=== PATIENT | female | born 1990 | race Two or more races ===

== ENCOUNTER 2017-09-06 13:16 | Outpatient (CLI) | payer OTHER ==
[2017-09-06 13:57] LABS: AMNISURE (ROM) NEGATIVE (NEGATIVE)
--- NOTE | 2017-09-06 14:31 | Non Stress Test Report ---
Non Stress Test Datetime Report Generated by CPN: 09/06/2017 14:30 DEMOGRAPHIC EGA NST: 33.4 INDICATION Indication for Study: Ordered by Provider MONITORING Monitor Explained: Monitor Explained; Test Explained; Patient Verbalized Understanding Time on Monitor: 09/06/2017 13:36 Time off Monitor: 09/06/2017 14:17 NST Duration: 41 NST INTERVENTIONS NST Interventions: PO Hydration; Reposition Patient Physician Notified NST: Murray, CNM BABY A: [id number] BABY A Movement : Present Contraction Frequency : 0 FHR Baseline : 135 Accelerations : 15X15 Decelerations : None Variability : Moderate 6-25bpm NST Review: Meets Criteria for Reactive NST NST Review and Verified By : AB MITCHELL Results: Reactive NST REPORT Report Trigger: Send Report
== END 2017-09-06 14:34 | disposition home or self-care (01) ==
LOC: LC 13:16
PROVIDERS: ATTEND Obstetrics & Gynecology
PROC: 4A1HXCZ Monitoring of Products of Conception, Cardiac Rate, External Approach (ICD-10-PCS; principal; 2017-09-06)
DX: O47.03 False labor before 37 completed weeks of gestation, third trimester (principal); Z3A.33 33 weeks gestation of pregnancy
CPT/HCPCS: 59025; 84112

== ENCOUNTER 2017-09-13 13:54 | Outpatient (CLI) | payer OTHER ==
[2017-09-13 14:43] LABS: APPEARANCE,URINE SLIGHTLY-CLOUDY; BILIRUBIN,URINE NEGATIVE (NEGATIVE); GLUCOSE, URINE NEGATIVE (NEGATIVE); KETONES,URINE NEGATIVE (NEGATIVE); LEUKOCYTE ESTERASE,URINE NEGATIVE (NEGATIVE); NITRITE,URINE NEGATIVE (NEGATIVE); PROTEIN,URINE NEGATIVE (NEGATIVE); URINE SPECIFIC GRAVITY 1.013; UROBILINOGEN,URINE NEGATIVE mg/dL (<2.0)
[2017-09-13 15:04] LABS: AMNISURE (ROM) NEGATIVE (NEGATIVE)
[2017-09-13 15:20] LABS: URINE BARBITURATES SCREEN NEGATIVE; URINE METHADONE SCREEN NEGATIVE; URINE OPIATES LOW NEGATIVE; URINE PHENCYCLIDINE SCREEN NEGATIVE
== END 2017-09-13 15:37 | disposition home or self-care (01) ==
LOC: LC 13:54
PROVIDERS: ATTEND Student in an Organized Health Care Education/Training Program
PROC: 4A1HXCZ Monitoring of Products of Conception, Cardiac Rate, External Approach (ICD-10-PCS; principal; 2017-09-13)
DX: O47.03 False labor before 37 completed weeks of gestation, third trimester (principal); Z3A.34 34 weeks gestation of pregnancy
CPT/HCPCS: 59025; 80307; 81005; 84112

== ENCOUNTER 2017-09-21 18:46 | Outpatient (CLI) | payer OTHER ==
[2017-09-21 19:39] LABS: APPEARANCE,URINE CLEAR; BILIRUBIN,URINE NEGATIVE (NEGATIVE); GLUCOSE, URINE NEGATIVE (NEGATIVE); KETONES,URINE NEGATIVE (NEGATIVE); LEUKOCYTE ESTERASE,URINE NEGATIVE (NEGATIVE); NITRITE,URINE NEGATIVE (NEGATIVE); PROTEIN,URINE NEGATIVE (NEGATIVE); URINE SPECIFIC GRAVITY 1.015
[2017-09-21 19:55] LABS: URINE BARBITURATES SCREEN NEGATIVE; URINE METHADONE SCREEN NEGATIVE; URINE OPIATES LOW NEGATIVE; URINE PHENCYCLIDINE SCREEN NEGATIVE
[2017-09-21 20:27] LABS: ABSOLUTE EOSINOPHILS # (AUTO) 0.2 10^3/uL (0.0-0.6); ABSOLUTE LYMPHOCYTES (AUTO) 1.3 10^3/uL (0.5-4.7); ABSOLUTE MONOCYTES (AUTO) 0.6 10^3/uL (0.1-1.4); ABSOLUTE NEUT (AUTO) 7.8 10^3/uL (1.7-8.2); BASOPHILS % (AUTO) 0.5 % (0-2); EOSINOPHILS % (AUTO) 1.7 % (0-6); HEMATOCRIT 30.8 % (36.0-47.0); HEMOGLOBIN 9.9 g/dL (12.0-15.5); HGB HCT DIFFERENCE -1.1; LYMPHOCYTES % (AUTO) 12.7 % (13-45); MEAN CORPUSCULAR HEMOGLOBIN 20.1 pg (27.0-33.4); MEAN CORPUSCULAR HGB CONC 32.2 g/dL (32.0-36.0); MONOCYTES % (AUTO) 6.4 % (3-13); RED BLOOD COUNT 4.91 10^6/uL (3.72-5.28); RED CELL DISTRIBUTION WIDTH 17.3 % (11.5-14.0); SEGMENTED NEUTROPHILS % (AUTO) 78.7 % (42-78); WHITE BLOOD COUNT 9.9 10^3/uL (4.0-10.5)
[2017-09-21] MEDS ORDERED: MAG HYDROX/AL HYDROX/SIMETH SUSP 30 ML UDCUP ONE (20:27)
[2017-09-21 20:38] LABS: MEAN CORPUSCULAR VOLUME 63 fl (80-97)
[2017-09-21 20:45] LABS: ALANINE AMINOTRANSFERASE 27 U/L (9-52); ALBUMIN 2.9 g/dL (3.5-5.0); ALKALINE PHOSPHATASE 110 U/L (38-126); AMYLASE 78 U/L (30-110); ANION GAP 9 (5-19); ASPARTATE AMINO TRANSFERASE 18 U/L (14-36); BILIRUBIN,DIRECT 0.1 mg/dL (0.0-0.4); BILIRUBIN,TOTAL 0.2 mg/dL (0.2-1.3); BLOOD UREA NITROGEN 6 mg/dL (7-20); CALCIUM 9.2 mg/dL (8.4-10.2); CARBON DIOXIDE 22 mmol/L (22-30); CHLORIDE 106 mmol/L (98-107); CREATININE RESULT 0.51 mg/dL (0.52-1.25); GLUCOSE 85 mg/dL (75-110); LIPASE 51.1 U/L (23-300); POTASSIUM 4.4 mmol/L (3.6-5.0); SODIUM 137.3 mmol/L (137-145); TOTAL PROTEIN 6.1 g/dL (6.3-8.2)
[2017-09-21 20:46] LABS: ANISOCYTOSIS 1+; MICROCYTOSIS 3+; POIKILOCYTOSIS SLIGHT
[2017-09-21 20:47] LABS: OVALOCYTES SLIGHT; TEAR DROP CELLS SLIGHT
[2017-09-21 20:48] LABS: POLYCHROMASIA SLIGHT
[2017-09-21] MEDS ORDERED: LIDOCAINE 2% VISCOUS SOLN 20 ML UDCUP PO ONE (21:00)
[2017-09-21] MEDS ORDERED: MAG HYDROX/AL HYDROX/SIMETH SUSP 30 ML UDCUP PO ONE (21:00)
[2017-09-21] MEDS ORDERED: METOCLOPRAMIDE HCL ORAL SOLN 10 MG/10 ML UDCUP PO ONE (21:00)
[2017-09-21] MEDS ORDERED: CITRIC ACID/SODIUM CITRATE ORAL SOLN 15 ML UDCUP PO ONE (21:25)
[2017-09-21] MEDS ORDERED: CITRIC ACID/SODIUM CITRATE ORAL SOLN 15 ML UDCUP ONE (21:33)
--- NOTE | 2017-09-22 00:24 | RADIOLOGY REPORT (SQ) ---
EXAM DESCRIPTION: U/S ABDOMEN LIMITED W/O DOP CLINICAL HISTORY: 26 years, Female, RUQ and epigastric pain,nausea,emesis COMPARISON: None. FINDINGS: Gallbladder sludge. Negative sonographic Bragg's test. 0.3 cm gallbladder wall thickness. 0.4 cm common duct diameter. No intra or extrahepatic ductal dilation. 20 cm hepatomegaly, partially obscured aorta, obscured pancreas, 12.3 cm right kidney, gravid uterus. No significant ascites. 5.4 x 4.5 x 2.0 cm mostly ventral, supraumbilical midline hernia appears mostly reducible with and without Valsalva maneuvers; if there is a bowel component, it appears mostly reducible. IMPRESSION: 1. No acute findings. Gallbladder sludge. Hepatomegaly. 2. Likely 5.4 cm ventral hernia, may contain some bowel and appears mostly reducible. No evidence of acute complication. 3. Gravid uterus. 2011 [employer]- All Rights Reserved
--- NOTE | 2017-09-22 01:04 | Non Stress Test Report ---
Non Stress Test Datetime Report Generated by CPN: 09/22/2017 01:04 DEMOGRAPHIC EGA NST: 35.5 EGA NST: 34.4 INDICATION Indication for Study: Other Indication for Study: Other Indication for Study (NST) Other: labor check Indication for Study (NST) Other: LABOR CHECK MONITORING Monitor Explained: Monitor Explained; Test Explained; Patient Verbalized Understanding Monitor Explained: Monitor Explained; Test Explained; Patient Verbalized Understanding Time on Monitor: 09/21/2017 19:13 Time on Monitor: 09/13/2017 14:15 Time off Monitor: 09/21/2017 21:35 NST Duration: 142 NST INTERVENTIONS NST Interventions: PO Hydration NST Interventions: PO Hydration; Reposition Patient Physician Notified NST: Park BABY A: [id number] BABY A Movement : Present Movement : Present Contraction Frequency : no contractions FHR Baseline : 140 FHR Baseline : 135 Accelerations : 15X15 Accelerations : 15X15 Decelerations : None Decelerations : None Variability : Moderate 6-25bpm Variability : Moderate 6-25bpm NST Review: Meets Criteria for Reactive NST NST Review: Meets Criteria for Reactive NST NST Review and Verified By : Gregorio Brown RN NST Review and Verified By : Dasia Delgado RNC NST Results: Reactive NST Results: Reactive NST REPORT Report Trigger: Send Report
[2017-09-22 12:59] LABS: PATH REVIEW PATHOLOGIST REVIEWED
== END 2017-09-22 00:53 | disposition home or self-care (01) ==
LOC: LC 18:46
PROVIDERS: ATTEND Student in an Organized Health Care Education/Training Program
PROC: 4A1HXCZ Monitoring of Products of Conception, Cardiac Rate, External Approach (ICD-10-PCS; principal; 2017-09-21)
DX: O47.03 False labor before 37 completed weeks of gestation, third trimester (principal); R10.11 Right upper quadrant pain; R11.2 Nausea with vomiting, unspecified; Z3A.35 35 weeks gestation of pregnancy
CPT/HCPCS: 59025; 36415; 82150; 83690; 85025; 80053; 81001; 80307; 76705; J3490 ×2

== ENCOUNTER 2017-10-20 20:04 | Outpatient (CLI) | payer OTHER ==
[2017-10-20 20:48] LABS: APPEARANCE,URINE CLOUDY; BILIRUBIN,URINE NEGATIVE (NEGATIVE); GLUCOSE, URINE 50 mg/dL (NEGATIVE); KETONES,URINE NEGATIVE (NEGATIVE); LEUKOCYTE ESTERASE,URINE TRACE (NEGATIVE); NITRITE,URINE NEGATIVE (NEGATIVE); PROTEIN,URINE 100 mg/dL (NEGATIVE); URINE SPECIFIC GRAVITY 1.034; UROBILINOGEN,URINE NEGATIVE mg/dL (<2.0)
[2017-10-20 20:51] LABS: COLOR,URINE YELLOW
[2017-10-20 20:55] LABS: AMNISURE (ROM) NEGATIVE (NEGATIVE)
[2017-10-20 21:05] LABS: URINE AMPHETAMINES SCREEN NEGATIVE; URINE BARBITURATES SCREEN NEGATIVE; URINE BENZODIAZEPINES SCREEN NEGATIVE; URINE COCAINE SCREEN NEGATIVE; URINE MARIJUANA (THC) SCREEN NEGATIVE; URINE METHADONE SCREEN NEGATIVE; URINE PHENCYCLIDINE SCREEN NEGATIVE
[2017-10-20] MEDS ORDERED: DEXTROSE 5%-LACTATED RINGERS 1,000 ML IV PRN (21:25)
[2017-10-20] MEDS ORDERED: RINGERS SOLUTION,LACTATED 1,000 ML IV PRN (21:27)
[2017-10-20 22:07] LABS: ALANINE AMINOTRANSFERASE 24 U/L (9-52); ALBUMIN 3.2 g/dL (3.5-5.0); ALKALINE PHOSPHATASE 121 U/L (38-126); ANION GAP 8 (5-19); ASPARTATE AMINO TRANSFERASE 16 U/L (14-36); BILIRUBIN,DIRECT 0.1 mg/dL (0.0-0.4); BILIRUBIN,TOTAL 0.1 mg/dL (0.2-1.3); BLOOD UREA NITROGEN 10 mg/dL (7-20); CALCIUM 9.1 mg/dL (8.4-10.2); CARBON DIOXIDE 23 mmol/L (22-30); CHLORIDE 108 mmol/L (98-107); GLUCOSE 100 mg/dL (75-110); LDH 384 U/L (313-618); SODIUM 138.5 mmol/L (137-145); TOTAL PROTEIN 6.2 g/dL (6.3-8.2); URIC ACID 5.3 mg/dL (2.5-6.2)
[2017-10-20 22:09] LABS: ABSOLUTE BASOPHILS # (AUTO) 0.1 10^3/uL (0.0-0.2); ABSOLUTE EOSINOPHILS # (AUTO) 0.1 10^3/uL (0.0-0.6); ABSOLUTE LYMPHOCYTES (AUTO) 2.7 10^3/uL (0.5-4.7); ABSOLUTE MONOCYTES (AUTO) 0.8 10^3/uL (0.1-1.4); ABSOLUTE NEUT (AUTO) 11.2 10^3/uL (1.7-8.2); BASOPHILS % (AUTO) 0.8 % (0-2); HEMATOCRIT 31.9 % (36.0-47.0); LYMPHOCYTES % (AUTO) 18.3 % (13-45); MEAN CORPUSCULAR HEMOGLOBIN 19.3 pg (27.0-33.4); MEAN CORPUSCULAR HGB CONC 31.3 g/dL (32.0-36.0); MONOCYTES % (AUTO) 5.4 % (3-13); PLATELET COUNT 388 10^3/uL (150-450); RED BLOOD COUNT 5.18 10^6/uL (3.72-5.28); SEGMENTED NEUTROPHILS % (AUTO) 74.5 % (42-78); TOTAL CELLS COUNTED % (AUTO) 100 %
[2017-10-20 22:13] LABS: UR PRO/CREAT RATIO RESULT 0.1 mg/mg (0.0-0.2); URINE CREATININE 309.8 mg/dL (16-327); URINE PROTEIN 33.8 mg/dL (<12)
[2017-10-20 22:31] LABS: ANISOCYTOSIS 2+; BURR CELLS SLIGHT; OVALOCYTES SLIGHT; POIKILOCYTOSIS SLIGHT; POLYCHROMASIA 1+; TEAR DROP CELLS SLIGHT
[2017-10-20 22:32] LABS: MEAN CORPUSCULAR VOLUME 62 fl (80-97); PLATELET COMMENT ADEQUATE
[2017-10-21] MEDS ORDERED: ACETAMINOPHEN 325 MG TABLET PO ONE (01:00)
[2017-10-21] MEDS ORDERED: ACETAMINOPHEN 325 MG TABLET ONE (01:21)
--- NOTE | 2017-10-21 01:22 | RADIOLOGY REPORT (SQ) ---
EXAM DESCRIPTION: U/S PROFILE W/O STRESS CLINICAL HISTORY: 26 years, Female, decreased FM, unable to keep on monitor COMPARISON: None. TECHNIQUE: Targeted obstetrical sonogram for limited, requested parameters. LIMITATIONS: None. FINDINGS: Biophysical profile: breathing movement: Zero posturing tone: Two movement: Two Qualitative amniotic fluid volume: Two; single vertical fluid pocket demonstrated measuring 3.9 cm. Total score: Six of eight heart rate: 124 bpm Presentation: Vertex IMPRESSION: Targeted obstetrical sonogram for requested parameters. 2011 [employer]- All Rights Reserved
--- NOTE | 2017-10-21 01:53 | Non Stress Test Report ---
Non Stress Test Datetime Report Generated by CPN: 10/21/2017 01:53 DEMOGRAPHIC Test Number: 4 INDICATION Indication for Study: Decreased Movement; Ordered by Provider VITAL SIGNS Pulse - NST: 78 RESP - NST: 20 NBPSYS NST: 131 NBPDIA NST: 80 URINE RESULTS Urine Protein, NST: Positive Urine Ketones - NST: Negative Urine Glucose - NST: Positive Urine Blood - NST: Negative MONITORING Monitor Explained: Monitor Explained; Test Explained; Patient Verbalized Understanding NST INTERVENTIONS NST Interventions: PO Hydration; IV Fluids; Reposition Patient; For Biophysical Profile Physician Notified NST: Dr. Nick BABY A: [id number] BABY A Movement : Present; Decreased Contraction Frequency : rare Accelerations : 15X15 Decelerations : None NST Review: Meets Criteria for Reactive NST NST Review and Verified By : Rhett Madera RN NST Results: Reactive NST COMMENTS NST Comments: bpp 6/8 for breathing. unable to continuously monitor tracing due to maternal habitus. NST REPORT Report Trigger: Send Report
[2017-10-23 16:25] LABS: PATH REVIEW PATHOLOGIST REVIEWED
== END 2017-10-21 01:40 | disposition home or self-care (01) ==
LOC: LC 20:04
PROVIDERS: ATTEND Student in an Organized Health Care Education/Training Program
PROC: 4A1HXCZ Monitoring of Products of Conception, Cardiac Rate, External Approach (ICD-10-PCS; principal; 2017-10-20)
DX: O36.8130 Decreased fetal movements, third trimester, not applicable or unspecified (principal); O47.1 False labor at or after 37 completed weeks of gestation; Z3A.39 39 weeks gestation of pregnancy
CPT/HCPCS: 36415; 59025; 76819; 80053; 80307; 81005; 82570; 83615; 84112; 84156; 84550; 85025

== ENCOUNTER 2017-10-22 13:38 | Inpatient (IN) | payer OTHER ==
[2017-10-22 14:15] LABS: APPEARANCE,URINE SLIGHTLY-CLOUDY; BILIRUBIN,URINE NEGATIVE (NEGATIVE); COLOR,URINE YELLOW; GLUCOSE, URINE NEGATIVE (NEGATIVE); KETONES,URINE NEGATIVE (NEGATIVE); LEUKOCYTE ESTERASE,URINE SMALL (NEGATIVE); NITRITE,URINE NEGATIVE (NEGATIVE); PROTEIN,URINE NEGATIVE (NEGATIVE); UROBILINOGEN,URINE NEGATIVE mg/dL (<2.0)
[2017-10-22 14:34] LABS: UR PRO/CREAT RATIO RESULT 0.3 mg/mg (0.0-0.2); URINE CREATININE 82.8 mg/dL (16-327); URINE PROTEIN 24.3 mg/dL (<12)
[2017-10-22 14:43] LABS: URINE AMPHETAMINES SCREEN NEGATIVE; URINE BARBITURATES SCREEN NEGATIVE; URINE BENZODIAZEPINES SCREEN NEGATIVE; URINE COCAINE SCREEN NEGATIVE; URINE MARIJUANA (THC) SCREEN NEGATIVE; URINE METHADONE SCREEN NEGATIVE; URINE PHENCYCLIDINE SCREEN NEGATIVE
[2017-10-22 15:03] LABS: ABSOLUTE BASOPHILS # (AUTO) 0.1 10^3/uL (0.0-0.2); ABSOLUTE EOSINOPHILS # (AUTO) 0.2 10^3/uL (0.0-0.6); ABSOLUTE MONOCYTES (AUTO) 0.7 10^3/uL (0.1-1.4); ABSOLUTE NEUT (AUTO) 9.1 10^3/uL (1.7-8.2); EOSINOPHILS % (AUTO) 1.3 % (0-6); HEMATOCRIT 30.5 % (36.0-47.0); HEMOGLOBIN 9.5 g/dL (12.0-15.5); LYMPHOCYTES % (AUTO) 16.4 % (13-45); MEAN CORPUSCULAR HEMOGLOBIN 19.2 pg (27.0-33.4); MEAN CORPUSCULAR HGB CONC 31.3 g/dL (32.0-36.0); MEAN CORPUSCULAR VOLUME 61 fl (80-97); PLATELET COUNT 349 10^3/uL (150-450); RED BLOOD COUNT 4.96 10^6/uL (3.72-5.28); RED CELL DISTRIBUTION WIDTH 18.1 % (11.5-14.0); SEGMENTED NEUTROPHILS % (AUTO) 75.3 % (42-78); TOTAL CELLS COUNTED % (AUTO) 100 %; WHITE BLOOD COUNT 12.1 10^3/uL (4.0-10.5)
[2017-10-22 15:18] LABS: ALANINE AMINOTRANSFERASE 24 U/L (9-52); ALBUMIN 2.8 g/dL (3.5-5.0); ALKALINE PHOSPHATASE 115 U/L (38-126); ANION GAP 5 (5-19); ASPARTATE AMINO TRANSFERASE 14 U/L (14-36); BILIRUBIN,DIRECT 0.1 mg/dL (0.0-0.4); BILIRUBIN,TOTAL 0.2 mg/dL (0.2-1.3); BLOOD UREA NITROGEN 7 mg/dL (7-20); CALCIUM 9.2 mg/dL (8.4-10.2); CARBON DIOXIDE 23 mmol/L (22-30); CHLORIDE 109 mmol/L (98-107); GLUCOSE 98 mg/dL (75-110); LDH 351 U/L (313-618); POTASSIUM 4.8 mmol/L (3.6-5.0); TOTAL PROTEIN 5.5 g/dL (6.3-8.2); URIC ACID 4.8 mg/dL (2.5-6.2)
[2017-10-22 15:21] LABS: OVALOCYTES SLIGHT; PLATELET COMMENT ADEQUATE; POIKILOCYTOSIS 1+; TEAR DROP CELLS SLIGHT
[2017-10-22] MEDS ORDERED: BUTALB/ACETAMINOPHEN/CAFFEINE 1 TAB EACH ONE (15:31)
[2017-10-22] MEDS ORDERED: RINGERS SOLUTION,LACTATED 1,000 ML IV PRN (16:39)
[2017-10-22] MEDS ORDERED: OXYTOCIN/NORMAL SALINE 20 UNIT/1,000 ML RTUINJ IV PRN (16:39)
[2017-10-22] MEDS ORDERED: RINGERS SOLUTION,LACTATED 300 ML IV ONE (17:00)
[2017-10-22] MEDS ORDERED: OXYTOCIN/NORMAL SALINE 20 UNIT/1,000 ML RTUINJ ONE ×2 (17:06→19:57)
[2017-10-22] MEDS ORDERED: MISOPROSTOL 0.2 MG TABLET ONE (19:57)
[2017-10-22] MEDS ORDERED: LIDOCAINE 1% INJ-PF (10 MG/ML) 30 ML SDV ONE (19:57)
--- NOTE | 2017-10-22 20:41 | L&D Progress Notes ---
PROGRESS NOTES Datetime Report Generated by CPN: 10/22/2017 20:41 PROGRESS NOTE Impression: Normal Progression of Labor Procedures: Sterile Vag Exam Plan: Induction; Cervical Ripening Informed Consent Obtained: Vaginal Delivery; Induction of Labor; Risks, Benefits and Alternatives Discussed Informed Consent Obtained: Vaginal Delivery; Induction of Labor; Risks, Benefits and Alternatives Discussed Vital Signs : Reviewed Comment: Pt has been on pitocin for approx 5 hours for cervical ripening/IOL. Cvx with change. Not in labor yet. Continue with pitocin to attempt to achieve labor. Pelvis adequate for continued SAVITA. Reassuring FWB VAGINAL EXAM Dilatation: 4 Dilatation: 2 Effacement: 25 Effacement: 25 Station: -2 Station: -2 Contractions: none MEMBRANES Membranes: Intact FETUS A FHR - Baseline: 130 Monitoring: External US Variability: Moderate 6-25bpm Accelerations: 15X15 Decelerations: None FHR Category: Category I Presentation: Vertex SIGNATURE SIGNATURE: [id number];[id number] SIGNATURE: [id number] SIGNATURE: [id number] SIGNATURE: [id number] Signature: with User ID: [email or web address]
--- NOTE | 2017-10-23 03:01 | L&D Progress Notes ---
PROGRESS NOTES Datetime Report Generated by CPN: 10/23/2017 03:01 PROGRESS NOTE Impression: Normal Progression of Labor Procedures: Artificial ROM; Sterile Vag Exam Plan: Continue Present Management; Induction Informed Consent Obtained: Vaginal Delivery; Induction of Labor; Risks, Benefits and Alternatives Discussed Vital Signs : Reviewed; Within Normal Limits Comment: Pt with increasing pain and pressure. Cvx /70/-2 with bulging bag. AROM with clear fluid. Pt declines epidural. Anticipate . VAGINAL EXAM Dilatation: 6 Effacement: 70 Station: -2 Contractions: q 2-3 MEMBRANES Membranes: Ruptured Amniotic Fluid Color: Clear FETUS A FHR - Baseline: 120 Monitoring: External US Variability: Moderate 6-25bpm Accelerations: 15X15 Decelerations: None FHR Category: Category I FETUS C SIGNATURE: [id number] Signature: with User ID: [email or web address]
[2017-10-23] MEDS ORDERED: OXYTOCIN 10 UNIT/ML VIAL ONE (04:01)
[2017-10-23] MEDS ORDERED: NA PHOS,M-B/NA PHOS,DI-BA (ADULT) 133 ML ENEMA PR PRN (04:02)
[2017-10-23] MEDS ORDERED: GLYCERIN/WITCH HAZEL LEAF 1 EACH MED..PAD TP PRN (04:02)
[2017-10-23] MEDS ORDERED: DIPH/PERTUSS(ACELL)/TETANUS VAC/PF 0.5 ML SYR (>=10YO) IM PRN (04:02)
[2017-10-23] MEDS ORDERED: MEASLES,MUMPS&RUBELLA VACC/PF 0.5 ML VIAL SUBCUT PRN (04:02)
[2017-10-23] MEDS ORDERED: MISOPROSTOL 0.2 MG TABLET PR ONE (04:02)
[2017-10-23] MEDS ORDERED: PROMETHAZINE HCL 25 MG SUPP.RECT PR PRN (04:02)
[2017-10-23] MEDS ORDERED: PSEUDOEPHEDRINE HCL 30 MG TABLET PO PRN (04:02)
[2017-10-23] MEDS ORDERED: PROMETHAZINE HCL INJ 25 MG/1 ML VIAL IV PRN (04:02)
[2017-10-23] MEDS ORDERED: MAGNESIUM HYDROXIDE SUSP 30 ML UDCUP PO PRN (04:02)
[2017-10-23] MEDS ORDERED: ZOLPIDEM TARTRATE 5 MG TABLET PO PRN (04:02)
[2017-10-23] MEDS ORDERED: BENZOCAINE/MENTHOL AEROSOL SPRAY 56 ML TOP PRN (04:02)
[2017-10-23] MEDS ORDERED: DIBUCAINE 1% OINTMENT 28 GM TP PRN (04:02)
[2017-10-23] MEDS ORDERED: DIPHENHYDRAMINE HCL 25 MG CAPSULE PO PRN (04:02)
[2017-10-23] MEDS ORDERED: OXYTOCIN/NORMAL SALINE 20 UNIT/1,000 ML RTUINJ IV PRN (04:02)
[2017-10-23] MEDS ORDERED: PROMETHAZINE HCL 25 MG TABLET PO PRN (04:02)
[2017-10-23] MEDS ORDERED: IBUPROFEN 800 MG TABLET ONE (04:48)
--- NOTE | 2017-10-23 04:57 | Delivery Summary ---
Del Sum A-C Datetime Report Generated by CPN: 10/23/2017 04:57 DELIVERY PERSONNEL DELIVERY PERSONNEL: [id number] Delivery Doctor:: Brittany Nick MD Labor and Delivery Nurse:: Dalia Gibbs RN Nursery Nurse:: Rachel Joseph RN B[employer]mason Helper/MANUFACTURING ENGINEERING INTERN: Syeda Agrawal, ST MATERNAL INFORMATION Delivery Anesthesia: None Medications After Delivery: Pitocin 10 Units IM; Pitocin Bolus-Please Comment Estimated Blood Loss (ml): 350 Provider Comments: No epidural and patient pushing uncontrollably. Patient acheived control as head was being controlled at perineum by provider. VMI delivered quickly in RIKKI presentation. Loose nuchal cord delivered through. Shoulders and body delivered without difficulty. Cord doubly clamped and cut and infant to maternal abdomen for NRP. Placenta delivered intact spontaneously. FF at U. Good hemostasis with pitocin IV and misoprostol CA. Bladder drained with red rubber and patient tolerated well. No perineal lacerations. Good hemostasis. LABOR SUMMARY EDC: 10/21/2017 00:00 No. Babies in Womb: 1 Attempted: No Labor Anesthesia: None LABOR INFORMATION Reason for Induction: Pre-Eclampsia Onset of Labor: 10/23/2017 02:30 Complete Dilatation: 10/23/2017 03:50 Cervical Ripening Agents: Other Other Ripening Agents: pitocin Oxytocin: Induction Group B Beta Strep: Negative Antibiotics # of Doses: 0 Steroids Given: None Reason Steroids Not Administered: Not Applicable MEMBRANES Membranes Rupture Method: Artificial Rupture of Membranes: 10/23/2017 02:30 Length of Rupture (hr): 1.35 Amniotic Fluid Color: Clear Amniotic Fluid Amount: Small Amniotic Fluid Odor: Normal STAGES OF LABOR Stage 1 hr: 1 Stage 1 min: 20 Stage 2 hr: 0 Stage 2 min: 1 Stage 3 hr: 0 Stage 3 min: 5 Total Time in Labor hr: 1 Total Time in Labor min: 26 VAGINAL DELIVERY Episiotomy: None Laceration #1: None Laceration Extension #1: N/A Laceration Repair: Not Applicable Sponge Count Correct: Yes Sharps Count Correct: Yes CSECTION DELIVERY Primary Indication: N/A Secondary Indication: N/A BABY A INFORMATION Infant Delivery Date/Time: 10/23/2017 03:51 Method of Delivery: Vaginal Born in Route : No : N/A Forceps: N/A Vacuum Extraction: N/A Shoulder Dystocia : No PRESENTATION/POSITION BABY A Presentation: Cephalic Cephalic Presentation: Vertex Vertex Position: Right Occipital Anterior Breech Presentation: N/A PLACENTA INFORMATION BABY A Placenta Delivery Time : 10/23/2017 03:56 Placenta Method of Delivery: Spontaneous Placenta Status: Delivered SCORES BABY A Heart Rate 1 min: >100 bpm Resp Effort 1 min: Good Cry Reflex Irritability 1 min: Cough or Sneeze or Pulls Away Muscle Tone 1 min: Active Motion Color 1 min: Blue/Pale Resuscitation Effort 1 min: Tactile Stimulation SCORE 1 MIN: 8 Heart Rate 5 min: >100 bpm Resp Effort 5 min: Good Cry Reflex Irritability 5 min: Cough or Sneeze or Pulls Away Muscle Tone 5 min: Active Motion Color 5 min: Body [place], Extremities Blue Resuscitation Effort 5 min: Tactile Stimulation SCORE 5 MIN: 9 INFORMATION BABY A Gestational Age at Delivery: 40.2 Gestational Status: Full Term- 39- 40.6 Weeks Outcome : Liveborn Infant Condition : Stable Infant Sex: Male IDENTIFICATION BABY A Infant Verification Date/Time: 10/23/2017 03:51 ID Band Number: [id number] Mother's Name Verified: Yes RN Verifying : Yuliana GibbsAB Additional Verifying Personnel: Ruben Mota RN WEIGHT/LENGTH BABY A Birthweight (gm): 3770 Weight (lb): 8 Weight (oz): 5 Infant Length (in): 19.75 Length (cm): 50.17 CORD INFORMATION BABY A No. Cord Vessels: 3 Nuchal Cord : Around Neck x1, Loose Cord Blood Taken: Yes-For Eval (Mom's Blood Type - or O+) Infant Suction: None; Mouth ASSESSMENT BABY A Skin to Skin: Yes Skin to Skin Time (min): 20 BABY B INFORMATION : N/A SIGNATURES Signature: with User ID: [email or web address]
--- NOTE | 2017-10-23 06:27 | Admission Physical ---
Datetime Report Generated by CPN: 10/23/2017 06:26 CURRENT ADMISSION Hx Assessment: The History has been Reviewed and is Current Chief Complaint: Signs/Symptoms Gestational HTN Indication for Induction: Eclampsia-Mild Indication for Induction: Term, Intrauterine Admit Plan: Admit to Unit; Initiate Labor Induction Protocol ALLERGIES Medication Allergies: Yes Medication Allergies: hydrocodone/MN/Vomiting (09/21/2017); acetaminophen/MN/Vomiting (09/21/2017) Medication Allergies: hydrocodone/MN/Vomiting (09/13/2017); acetaminophen/MN/Vomiting (09/13/2017); albuterol (09/13/2017) Medication Allergies: hydrocodone/MN/Vomiting (09/06/2017); acetaminophen/MN/Vomiting (09/06/2017); albuterol (09/06/2017) Medication Allergies: No Known Allergies (09/17/2013) Latex: No Latex Allergies Food Allergies: None Environmental Allergies: None OBSTETRICAL HISTORY EDC: 10/21/2017 00:00 : 8 Para: 3 Term: 3 : 0 SAB: 2 IAB: 2 Livin Gestational Diabetes: No Rh Sensitization: No Incompetent Cervix: No ZACK: No Infertility: No ART Treatment: No Uterine Anomaly: No IUGR: No Hx Previous C/S: No Macrosomia: No Hx Loss/Stillborn: No PIH: No Hx : No Placenta Previa/Abruption: No Depression/PP Depression: No PTL/PROM: No Post Hemorrhage: Yes Current Procedures: Ultrasound Obstetrical History Comments: G1 - 2007, , Boy, 40 weeks G2 - 2011, EAB, 7 weeks G3 - 2012, SAB, 6 weeks G4- 2013, SAB, 6 WEEKS G5- 2013, EAB, 6 WEEKS G6 - 2014, , Boy, 40 weeks G7 - 2014, , Boy, 40 weeks G8 - 2016 - Current SEE RECORDS Alcohol: No Marijuana : No Cocaine: No Other Illicit Drugs: No Cigarettes: Never Smoker. [id number] MEDICAL HISTORY Diabetes: No Blood Transfusion: No Pulmonary Disease (Asthma, TB): Yes Breast Disease: No Hypertension: No Access Rep Surgery: No Heart Disease: No Hosp/Surgery: No Autoimmune Disorder: No Anesthetic Complications: No Kidney Disease: No Abnormal Pap Smear: No Neuro/Epilepsy: No Psychiatric Disorders: No Other Medical Diseases: No Hepatitis/Liver Disease: No Significant Family History: No Varicosities/Phlebitis: No Trauma/Violence : No Thyroid Dysfunction: No Medical History Comments: Thalessimia-Anemia Traits, asthma and hearing lossing in both ears, umbilical hernia INFECTIOUS HISTORY Gonorrhea: No Genital Herpes: No Chlamydia: No Tuberculosis: No Syphilis: No Hepatitis: No HIV/AIDS Exposure: No Rash or Viral Illness: No HPV: No PHYSICAL EXAM General: Normal HEENT: Normal Neurologic: Normal Thyroid: Deferred Heart: Normal Lungs: Normal Breast: Deferred Back: Normal Abdomen: Normal Genitourinary Exam: Normal Extremities: Normal DTRs: Normal Pelvic Type: Adequate Vital Signs: Reviewed VAGINAL EXAM Dilatation: 6 Dilatation: 4 Dilatation: 2 Effacement: 70 Effacement: 25 Effacement: 25 Station: -2 Station: -2 Station: -2 Contraction Comments: q 2-3 Contraction Comments: none MEMBRANES Membranes: Ruptured Membranes: Intact Amniotic Fluid Color: Clear FETUS A EGA: 40.1 Monitoring: External US FHR- Baseline: 125 Variability: Moderate 6-25bpm Accelerations: 15X15 Decelerations: None FHR Category: Category I Presentation: Vertex Admit Comment: 26yo at 40+1ega presents for severe RENNER. SHe was seen on L_D on Friday 10/20 for PreE workup. She has a history of x 3 and PPH with each. She is unsure regarding epidural. She only required transfusion with first delivery. Pelvis proven to 9#3oz. beta Thal trait - souse neg. Veretx by US on admission. Bilateral hearing loss with hearing aides. Obesity with BMI of 42. GBS negative. REviewed concerns for PreE with RENNER and with P:C ratio of 0.3 and recommend IOL. Pt agreeable with plan of care and pelvis adequate for SAVITA. Admit for IOL PLANS FOR LABOR AND DELIVERY Labor and Delivery: None Pain Management: Epidural Feeding Preference: Breast Benefit of Breast Feed Discussed: Yes Circumcision: No INFORMED CONSENT Informed Consent Obtained: Vaginal Delivery; Induction of Labor; Risks, Benefits and Alternatives Discussed Informed Consent Obtained: Vaginal Delivery; Induction of Labor; Risks, Benefits and Alternatives Discussed Informed Consent Obtained: Vaginal Delivery; Induction of Labor; Risks, Benefits and Alternatives Discussed Signature: with User ID: [email or web address]
[2017-10-23] MEDS: IBUPROFEN 800 MG TABLET PO SCH ×3 (07:33→22:52)
[2017-10-23] MEDS: DOCUSATE SODIUM 100 MG CAPSULE PO SCH ×2 (08:50→17:44)
[2017-10-23] MEDS: PRENATAL VITAMIN W DHA CAPSULE PO SCH (08:51)
[2017-10-23] MEDS: FAMOTIDINE 20 MG TABLET PO SCH ×2 (08:51→22:51)
[2017-10-23] MEDS: FERROUS SULFATE 325 MG TABLET PO SCH ×2 (08:51→17:43)
[2017-10-23] MEDS: SENNOSIDES/DOCUSATE 8.6-50 MG 1 EACH TABLET PO SCH (09:15)
--- NOTE | 2017-10-23 10:53 | PDOC PROGRESS REPORT ---
Subjective-OB Subjective: Post Delivery Day: 26 year old. Denies any needs at this time doing well, no c/o. tired, bleeding scant, OOB to BR, voiding, eating well Physical Exam (OB) Vital Signs: Temp Pulse Resp BP Pulse Ox 98.7 F 70 16 106/67 100 10/23/17 08:25 10/23/17 08:25 10/23/17 08:25 10/23/17 08:25 10/23/17 08:25 Intake & Output 10/22/17 10/23/17 10/24/17 06:59 06:59 06:59 Weight 144 kg - PIH/Pre-Eclampsia Headache: Absent Epigastric Pain: No Visual Changes: No - Lochia Lochia Amount: Small 10-25 ml Lochia Color: Rubra/Red - Abdomen Description: Soft Hernia Present: No Fundal Description: Firm Fundal Height: u/u - u/2 Objective-Diagnostic Laboratory: 10/22/17 14:51 10/22/17 14:51 10/22/17 10/22/17 10/22/17 13:45 14:51 14:51 WBC 12.1 H RBC 4.96 Hgb 9.5 L Hct 30.5 L MCV 61 L MCH 19.2 L MCHC 31.3 L RDW 18.1 H Plt Count 349 Seg Neutrophils % 75.3 Lymphocytes % 16.4 Monocytes % 6.0 Eosinophils % 1.3 Basophils % 1.0 Absolute Neutrophils 9.1 H Absolute Lymphocytes 2.0 Absolute Monocytes 0.7 Absolute Eosinophils 0.2 Absolute Basophils 0.1 Sodium 137.0 Potassium 4.8 Chloride 109 H Carbon Dioxide 23 Anion Gap 5 BUN 7 Creatinine 0.50 L Est GFR ( Amer) > 60 Est GFR (Non-Af Amer) > 60 Glucose 98 Uric Acid 4.8 Calcium 9.2 Total Bilirubin 0.2 AST 14 ALT 24 Alkaline Phosphatase 115 Total Protein 5.5 L Albumin 2.8 L Urine Color YELLOW Urine Appearance SLIGHTLY-CLOUDY Urine pH 7.0 Ur Specific [place] 1.010 Urine Protein NEGATIVE Urine Glucose (UA) NEGATIVE Urine Ketones NEGATIVE Urine Blood NEGATIVE Urine Nitrite NEGATIVE Ur Leukocyte Esterase SMALL H Urine WBC (Auto) 2 Urine RBC (Auto) 3 Blood Type Antibody Screen 10/22/17 16:57 WBC RBC Hgb Hct MCV MCH MCHC RDW Plt Count Seg Neutrophils % Lymphocytes % Monocytes % Eosinophils % Basophils % Absolute Neutrophils Absolute Lymphocytes Absolute Monocytes Absolute Eosinophils Absolute Basophils Sodium Potassium Chloride Carbon Dioxide Anion Gap BUN Creatinine Est GFR ( Amer) Est GFR (Non-Af Amer) Glucose Uric Acid Calcium Total Bilirubin AST ALT Alkaline Phosphatase Total Protein Albumin Urine Color Urine Appearance Urine pH Ur Specific [place] Urine Protein Urine Glucose (UA) Urine Ketones Urine Blood Urine Nitrite Ur Leukocyte Esterase Urine WBC (Auto) Urine RBC (Auto) Blood Type O POSITIVE Antibody Screen NEGATIVE Assessment and Plan(PN) - Assessment and Plan (1) Normal spontaneous vaginal delivery Is this a current diagnosis for this admission?: Yes (2) Pre-eclampsia Qualifiers: Trimester: third trimester Qualified Code(s): O14.93 - Unspecified pre- eclampsia, third trimester Is this a current diagnosis for this admission?: Yes (3) Anemia Qualifiers: Anemia type: iron deficiency Is this a current diagnosis for this admission?: Yes - Time Spent with Patient Time with patient: Less than 15 minutes Medications reviewed and adjusted accordingly: Yes - Disposition Anticipated Discharge: Home Within: within 48 hours
[2017-10-24] MEDS: IBUPROFEN 800 MG TABLET PO SCH ×3 (05:29→22:04)
[2017-10-24 07:50] LABS: HEMATOCRIT 29.4 % (36.0-47.0); HEMOGLOBIN 9.2 g/dL (12.0-15.5); MEAN CORPUSCULAR HEMOGLOBIN 19.3 pg (27.0-33.4); MEAN CORPUSCULAR HGB CONC 31.2 g/dL (32.0-36.0); MEAN CORPUSCULAR VOLUME 62 fl (80-97); RED BLOOD COUNT 4.76 10^6/uL (3.72-5.28); RED CELL DISTRIBUTION WIDTH 17.4 % (11.5-14.0); WHITE BLOOD COUNT 13.8 10^3/uL (4.0-10.5)
[2017-10-24 08:19] LABS: PLATELET COUNT 353 10^3/uL (150-450)
--- NOTE | 2017-10-24 11:03 | PDOC PROGRESS REPORT ---
Subjective-OB Subjective: Post Delivery Day: 26 year old. Denies any needs at this time. Pt doing well, no concerns. reports light bleeding and voiding well. Physical Exam (OB) Vital Signs: Temp Pulse Resp BP Pulse Ox 98.6 F 99 18 126/74 H 100 10/23/17 19:57 10/23/17 19:57 10/23/17 19:57 10/23/17 19:57 10/23/17 19:57 Intake & Output 10/23/17 10/24/17 10/25/17 06:59 06:59 06:59 Intake Total 1480 Balance 1480 Weight 144 kg - PIH/Pre-Eclampsia Headache: Absent Epigastric Pain: No Visual Changes: No - Lochia Lochia Amount: Small 10-25 ml Lochia Color: Rubra/Red - Abdomen Description: Soft, Round Hernia Present: No Fundal Description: Firm, Midline Fundal Height: u/u - u/2 Objective-Diagnostic Laboratory: 10/24/17 07:38 10/22/17 14:51 10/24/17 07:38 WBC 13.8 H RBC 4.76 Hgb 9.2 L Hct 29.4 L MCV 62 L MCH 19.3 L MCHC 31.2 L RDW 17.4 H Plt Count 353 Assessment and Plan(PN) - Assessment and Plan (1) Anemia Qualifiers: Anemia type: iron deficiency Iron deficiency anemia type: unspecified iron deficiency Qualified Code(s): D50.9 - Iron deficiency anemia, unspecified Is this a current diagnosis for this admission?: Yes (2) Normal spontaneous vaginal delivery Is this a current diagnosis for this admission?: Yes (3) Pre-eclampsia Qualifiers: Trimester: third trimester Qualified Code(s): O14.93 - Unspecified pre- eclampsia, third trimester Is this a current diagnosis for this admission?: Yes - Time Spent with Patient Medications reviewed and adjusted accordingly: Yes - Disposition Anticipated Discharge: Home
[2017-10-24] MEDS: FERROUS SULFATE 325 MG TABLET PO SCH ×2 (12:11→17:44)
[2017-10-24] MEDS: DOCUSATE SODIUM 100 MG CAPSULE PO SCH ×2 (12:11→17:44)
[2017-10-24] MEDS: FAMOTIDINE 20 MG TABLET PO SCH ×2 (12:11→22:04)
[2017-10-24] MEDS: PRENATAL VITAMIN W DHA CAPSULE PO SCH (12:11)
[2017-10-24] MEDS: SENNOSIDES/DOCUSATE 8.6-50 MG 1 EACH TABLET PO SCH ×2 (12:54→17:47)
[2017-10-25] MEDS: IBUPROFEN 800 MG TABLET PO SCH ×2 (06:07→14:08)
[2017-10-25 08:38] VITALS: BP 128/70
[2017-10-25] MEDS: FAMOTIDINE 20 MG TABLET PO SCH (09:27)
[2017-10-25] MEDS: FERROUS SULFATE 325 MG TABLET PO SCH (09:27)
[2017-10-25] MEDS: PRENATAL VITAMIN W DHA CAPSULE PO SCH (09:27)
[2017-10-25] MEDS: DOCUSATE SODIUM 100 MG CAPSULE PO SCH (09:27)
--- NOTE | 2017-10-25 11:15 | PDOC DISCHARGE SUMMARY ---
Final Diagnosis Discharge Date: 10/25/17 - Final Diagnosis (1) Anemia affecting in third trimester Is this a current diagnosis for this admission?: Yes (2) Normal spontaneous vaginal delivery Is this a current diagnosis for this admission?: Yes (3) Pre-eclampsia Is this a current diagnosis for this admission?: Yes Discharge Data - Discharge Medication Prescriptions: Ibuprofen [Motrin 800 mg Tablet] 800 mg PO Q8HP PRN #30 tablet PRN Reason: Docusate Sodium [Colace 100 mg Capsule] 100 mg PO BID #60 capsule Ferrous Sulfate [Feosol 325 mg Tablet] 325 mg PO BID #60 tablet Home Medications: Vits16/Iron/Folic/Dss [Vinate Gt Tablet] 1 tab PO DAILY 09/06/13 Acetaminophen [Tylenol Extra Strength] 2 tab PO PRN PRN 10/22/17 Docusate Sodium [Colace 100 mg Capsule] 100 mg PO BID #60 capsule 10/25/17 Ferrous Sulfate [Feosol 325 mg Tablet] 325 mg PO BID #60 tablet 10/25/17 Ibuprofen [Motrin 800 mg Tablet] 800 mg PO Q8HP PRN #30 tablet 10/25/17 Reason(s) for Admission: Induction of Labor Procedures: NST, Ultrasound Intrapartum Procedure(s): Spontaneous Vaginal Delivery - Diagnosis Test Laboratory: Temp Pulse Resp BP Pulse Ox 98.9 F 82 20 128/70 H 100 10/25/17 08:34 10/25/17 08:34 10/25/17 08:34 10/25/17 07:37 10/25/17 08:34 10/22/17 10/22/17 10/24/17 13:45 14:51 07:38 RBC 4.96 4.76 Hgb 9.5 L 9.2 L Hct 30.5 L 29.4 L Urine Opiates Screen NEGATIVE - Discharge information/Instructions Discharge Activity: Activity As Tolerated, Balance Activity w/Rest, No Lifting Over 10 Pounds, No Lifting/Push/Pulling, Pelvic Rest, Slowly Increase Activity, No tub bath, Walk Frequently Discharge Diet: Regular Disposition: HOME, SELF-CARE Follow up with: [facility]: [facility], Days - blood pressure check
== END 2017-10-25 14:50 | disposition home or self-care (01) | DRG 775 ==
LOC: LC 13:38 → LR 16:44 → 2S 10-23 06:15
PROVIDERS: ADMIT Student in an Organized Health Care Education/Training Program; ATTEND Student in an Organized Health Care Education/Training Program
PROC: 10E0XZZ Delivery of Products of Conception, External Approach (ICD-10-PCS; principal; 2017-10-23)
PROC: 10907ZC Drainage of Amniotic Fluid, Therapeutic from Products of Conception, Via Natural or Artificial Opening (ICD-10-PCS; 2017-10-23)
PROC: 3E033VJ Introduction of Other Hormone into Peripheral Vein, Percutaneous Approach (ICD-10-PCS; 2017-10-23)
PROC: 4A1HXCZ Monitoring of Products of Conception, Cardiac Rate, External Approach (ICD-10-PCS; 2017-10-23)
DX: O14.04 Mild to moderate pre-eclampsia, complicating childbirth (principal); Z68.43 Body mass index [BMI] 50.0-59.9, adult; O69.81X0 Labor and delivery complicated by cord around neck, without compression, not applicable or unspecified; O99.214 Obesity complicating childbirth; E66.9 Obesity, unspecified; O99.02 Anemia complicating childbirth; D50.9 Iron deficiency anemia, unspecified; Z3A.40 40 weeks gestation of pregnancy; Z37.0 Single live birth
CPT/HCPCS: 36415; 80053; 80307; 81001; 82570; 83615; 84156; 84550; 85025; 85027; 86592; 86850; 86900; 86901; J2590; J3490